=== PATIENT | male | born 1975 | race Caucasian/White ===

== ENCOUNTER 2023-10-05 12:45 | Inpatient (IN) | payer OTHER ==
[2023-10-05] MEDS ORDERED: IRBESARTAN150 MG (14:30)
[2023-10-12 11:46] LABS: PARTIAL THROMBOPLASTIN TIME 29.5 SECONDS (22.0-34.0); PROTHROMBIN TIME 10.9 SECONDS (9.0-11.5)
[2023-10-13] MEDS ORDERED: CEFTRIAXONE SODIUM 2,000 MG VIAL ONE (06:16)
[2023-10-13] MEDS ORDERED: METRONIDAZOLE/SODIUM CHLORIDE 500 MG/100 ML PIGGYBACK IV ONE ×3 (06:16→15:05)
[2023-10-13] MEDS ORDERED: BUPIVACAINE HCL/MPF 0.5% 30ML VIAL ONE (07:14)
[2023-10-13] MEDS ORDERED: LIDOCAINE HCL 1%/EPINEPHRINE 20ML VIAL IJ ONE ×2 (07:14→10:45)
[2023-10-13] MEDS ORDERED: CEFTRIAXONE SODIUM 2,000 MG VIAL IV ONE (10:45)
[2023-10-13] MEDS ORDERED: BUPIVACAINE HCL 30 ML VIAL IJ ONE (10:45)
[2023-10-13] MEDS ORDERED: SUGAMMADEX SODIUM 200 MG/2 ML VIAL IV ONE (12:11)
[2023-10-13] MEDS ORDERED: ONDANSETRON HCL 2 MG/ML VIAL IV PRN (12:15)
[2023-10-13] MEDS ORDERED: OxyCODONE HCL 5 MG TABLET (ROXICODONE) PO PRN (12:15)
[2023-10-13] MEDS ORDERED: MORPHINE SULFATE 4 MG/ML CARTRIDGE IV PRN (12:15)
[2023-10-13] MEDS ORDERED: RINGERS SOLUTION,LACTATED 1,000 ML IV SCH (12:15)
[2023-10-13] MEDS ORDERED: HYOSCYAMINE SULFATE 0.125 MG TAB.SUBL SL SCH (13:00)
[2023-10-13] MEDS ORDERED: MORPHINE SULFATE 4 MG/ML VIAL IV ONE ×3 (13:40→15:40)
[2023-10-13] MEDS ORDERED: GABAPENTIN 300 MG CAPSULE PO SCH (17:00)
[2023-10-13] MEDS ORDERED: TAMSULOSIN HCL 0.4 MG CAP PO SCH (17:00)
[2023-10-13] MEDS ORDERED: LACTOBACILLUS ACIDOPHILUS 1 CAP CAP PO SCH (17:00)
[2023-10-13] MEDS ORDERED: METRONIDAZOLE/SODIUM CHLORIDE 500 MG/100 ML PIGGYBACK IV SCH (17:00)
[2023-10-13 17:36] VITALS: BP 133/69; O2SAT 98
[2023-10-13] MEDS ORDERED: ACETAMINOPHEN 500 MG GEL..CAP PO SCH (18:00)
[2023-10-13 18:48] VITALS: BP 133/69; O2SAT 98
[2023-10-13] MEDS ORDERED: FAMOTIDINE/PF 20 MG/2 ML VIAL IV PUSH SCH (21:00)
[2023-10-13] MEDS ORDERED: CIPROFLOXACIN IN 5 % DEXTROSE 400 MG/200 ML PIGGYBAG IV SCH (21:00)
[2023-10-14 00:22] VITALS: BP 136/76; O2SAT 97
[2023-10-14 08:00] VITALS: BP 147/83; O2SAT 97
[2023-10-14 08:24] LABS: HEMATOCRIT 41.6 % (39.0-48.0); HEMOGLOBIN 14.2 g/dL (13-16.00); MEAN CELL VOLUME 92.2 fL (80.0-100.00); MEAN CORPUSCULAR HEMOGLOBIN 31.5 pg (27.00-32.0); MEAN CORPUSCULAR HGB CONC 34.2 g/dl (32.0-36.0); PLATELET COUNT 151 K/uL (150-450); RED BLOOD COUNT 4.51 M/uL (4.00-6.00); RED CELL DISTRIBUTION WIDTH 14.2 % (11.5-14.5)
[2023-10-14 08:26] LABS: ALBUMIN 2.9 gm/dL (3.4-5.0); CALCIUM 8.4 mg/dL (8.5-10.1); CREATININE SERUM 1.05 mg/dL (0.70-1.30); GFR 75.71; PHOSPHOROUS 2.6 mg/dL (2.5-4.9); POTASSIUM 4.2 mEq/L (3.5-5.1)
[2023-10-14 16:00] VITALS: BP 138/79; O2SAT 98
[2023-10-14] MEDS ORDERED: ENOXAPARIN SODIUM 40 MG/0.4 ML SYRINGE SUBCUTANEO SCH (17:00)
[2023-10-15 00:25] VITALS: BP 127/80; O2SAT 100
[2023-10-15 08:00] VITALS: BP 157/82; O2SAT 97
[2023-10-15] MEDS ORDERED: IRBESARTAN 150 MG TABLET PO SCH (09:00)
[2023-10-15] MEDS ORDERED: ENOXAPARIN SODIUM 40 MG/0.4 ML SYRINGE SUBCUTANEO SCH (09:00)
[2023-10-15 16:00] VITALS: BP 156/86; O2SAT 99
[2023-10-15] MEDS ORDERED: DOCUSATE SODIUM 100MG CAP PO SCH (20:53)
[2023-10-15] MEDS ORDERED: IRBESARTAN 150 MG TABLET PO STA (20:55)
[2023-10-16 00:41] VITALS: BP 134/72; O2SAT 99
[2023-10-16 08:00] VITALS: BP 151/77; O2SAT 95
[2023-10-16] MEDS ORDERED: IRBESARTAN 150 MG TABLET PO SCH (09:00)
[2023-10-16] MEDS ORDERED: HYOSCYAMINE0.125 M1 SL (09:09)
[2023-10-16] MEDS ORDERED: INTESTINEX680 M1 PO (09:09)
[2023-10-16] MEDS ORDERED: GABAPENTIN300 MG PO (10:42)
[2023-10-17] MEDS ORDERED: IRBESARTAN 300 MG TABLET PO SCH (09:00)
== END 2023-10-16 14:51 | disposition home or self-care (01) | DRG 331 ==
LOC: O/R 10-13 05:05 → SURH 10-13 05:05 → SURG 10-13 07:00 → O/R 10-13 09:32 → SURG 10-13 12:45 → SURH 10-13 13:37
PROVIDERS: ADMIT Surgery; ATTEND Surgery
PROC: 0DBP4ZZ Excision of Rectum, Percutaneous Endoscopic Approach (ICD-10-PCS; 2023-10-13)
PROC: 0DNW4ZZ Release Peritoneum, Percutaneous Endoscopic Approach (ICD-10-PCS; 2023-10-13)
PROC: 8E0W4CZ Robotic Assisted Procedure of Trunk Region, Percutaneous Endoscopic Approach (ICD-10-PCS; 2023-10-13)
PROC: 0DJD8ZZ Inspection of Lower Intestinal Tract, Via Natural or Artificial Opening Endoscopic (ICD-10-PCS; 2023-10-13)
PROC: 4A1BXSH Monitoring of Gastrointestinal Vascular Perfusion using Indocyanine Green Dye, External Approach (ICD-10-PCS; 2023-10-13)
PROC: 0DTN4ZZ Resection of Sigmoid Colon, Percutaneous Endoscopic Approach (ICD-10-PCS; principal; 2023-10-13 07:00)
DX: K57.30 Diverticulosis of large intestine without perforation or abscess without bleeding (principal); K66.0 Peritoneal adhesions (postprocedural) (postinfection); E88.09 Other disorders of plasma-protein metabolism, not elsewhere classified; R10.9 Unspecified abdominal pain; R19.4 Change in bowel habit; K64.8 Other hemorrhoids; I10 Essential (primary) hypertension
CPT/HCPCS: 44207; 44213; 45300; 44180; S2900